=== PATIENT | female | born 1975 | race Caucasian/White ===

== ENCOUNTER 2018-11-26 10:42 | Observation (INO) | payer BC, OTHER ==
[~2018-11-26] VITALS: Ht 157.5 cm; Wt 96.6 kg
[2018-11-26] MEDS ORDERED: BACTRIM (11:12)
[2018-11-26 11:14] LABS: CLARITY,URINE CLEAR; COLOR,URINE AMBER; GLUCOSE, URINE (UA) NEGATIVE (NEGATIVE); KETONES,URINE NEGATIVE (NEGATIVE); LEUKOCYTE ESTERASE ,URINE 3+ (NEGATIVE); NITRITE,URINE NEGATIVE (NEGATIVE); PH,URINE 6 (5-9); PROTEIN,URINE 2+ (NEGATIVE); UROBILINOGEN,URINE 1 MG/DL (NORMAL)
[2018-11-26] MEDS ORDERED: NS IV 1000 ML 1,000 ML IV SCH ×2 (11:15→16:15)
[2018-11-26] MEDS ORDERED: fentaNYL INJECTION 100 MCG/2 ML AMP IVP ONE ×3 (11:15→14:45)
[2018-11-26 11:29] LABS: BACTERIA,URINE MODERATE /HPF; WBC,URINE 50-100 /HPF
[2018-11-26 11:30] LABS: BILIRUBIN,URINE 1+ (NEGATIVE)
[2018-11-26 11:37] LABS: BASOPHILS % (AUTO) 0 % (0-10); EOSINOPHILS # (AUTO) 0.1 10^3/uL (0.0-0.3); EOSINOPHILS % (AUTO) 0 % (0-10); HEMATOCRIT 35 % (35-52); HEMOGLOBIN 11.2 G/DL (11.5-16.0); LYMPHOCYTES # (AUTO) 1.3 X 10^3 (1.0-4.0); LYMPHOCYTES % (AUTO) 8 % (12-44); MEAN CORPUSCULAR HEMOGLOBIN 26 PG (25-34); MEAN CORPUSCULAR HGB CONC 32 G/DL (32-36); MEAN CORPUSCULAR VOLUME 82 FL (80-99); MEAN PLATELET VOLUME 8.1 FL (7.4-10.4); MONOCYTES # (AUTO) 1.2 X 10^3 (0.0-1.0); MONOCYTES % (AUTO) 7 % (0-12); NEUTROPHILS # (AUTO) 13.9 X 10^3 (1.8-7.8); NEUTROPHILS % (AUTO) 84 % (42-75); PLATELET COUNT 410 10^3/uL (130-400); RED CELL DISTRIBUTION WIDTH 14.8 % (10.0-14.5); WHITE BLOOD COUNT 16.5 10^3/uL (4.3-11.0)
--- NOTE | 2018-11-26 11:39 | ED Back Pain ---
General Chief Complaint: Back Problems Stated Complaint: POSS KIDNEY STONE Nursing Triage Note: AMB TO ROOM REPORTS WAS SEEN AT CLINIC ON MONDAY FOR LOW BACK PAIN MORE ON L SIDE. WAS STARTED ON ANTIBIOTIC WAS NOT ANY BETTER WENT TO URGENT CARE AT [place] RECEIVED IM ROCEPPHIN NOT ANY BETTER. WAS TOLD TO COME TO ER FOR POSSIBLE KIDNEY STONE. Nursing Sepsis Screen: No Definite Risk Source of Information: Patient Exam Limitations: No Limitations History of Present Illness Date Seen by Provider: Nov 26, 2018 Time Seen by Provider: 11:05 Initial Comments 43-year-old female who presents to the emergency room with complaints of left- sided flank pain that radiates to her low back for the past 3 days. She reports that she was seen at [facility] urgent care and was placed on anabiotic's and then went to [facility] to see Dr. Howard which she received a shot of Rocephin for a urinary tract infection but reports it is not improving. They recommended her to come to the emergency room to rule out a kidney stone. She reports likely urinary tract infection. Location: Lumbar Spine (left flank) Allergies and Home Medications Allergies Coded Allergies: No Known Drug Allergies (Unverified , 11/26/18) Patient Home Medication List Home Medication List Reviewed: Yes Review of Systems Constitutional: see HPI; No chills, No fever Genitourinary: see HPI, pain (flank pain and left-sided) All Other Systems Reviewed Negative Unless Noted: Yes Past Ddbddke-Jpovwm-Orzzmj Hx Patient Social History Alcohol Use: Occasionally Uses Alcohol Beverage of Choice: Beer Recreational Drug Use: No Smoking Status: Never a Smoker Recent Foreign Travel: No Contact w/Someone Who Travel: No Recent Infectious Disease Expo: No Past Medical History Surgeries: No Respiratory: No Cardiac: No Neurological: No Genitourinary: No Gastrointestinal: No Musculoskeletal: No Endocrine: No Integumentary: No Family Medical History Reviewed Nursing Family Hx Physical Exam Vital Signs Vital Signs - First Documented 11/26/18 10:45 Temp 99.0 Pulse 100 Resp 18 B/P (MAP) 140/90 (107) Pulse Ox 95 Capillary Refill : Less Than 3 Seconds Height, Weight, BMI Height: 5'2.00" Weight: 213lbs. oz. 96.899835fy; BMI Method:Stated General Appearance: No Apparent Distress, WD/WN Cardiovascular: Regular Rate, Rhythm, No Edema, No Gallop, No JVD, No Murmur, Normal Peripheral Pulses Respiratory: Chest Non Tender, Lungs Clear, Normal Breath Sounds, No Accessory Muscle Use, No Respiratory Distress, Accessory Muscle Use Gastrointestinal: Normal Bowel Sounds, No Organomegaly, No Pulsatile Mass, Non Tender, Soft Back: No Vertebral Tenderness Neurologic/Psychiatric: Alert, Oriented x3, Normal Mood/Affect Skin: Normal Color, Warm/Dry Progress/Results/Core Measures Results/Orders Lab Results Laboratory Tests Test 11/26/18 10:51 11/26/18 11:28 Range/Units Urine Color NICOLA H Urine Clarity CLEAR Urine pH 6 5-9 Urine Specific Concrete 1.020 1.016-1.022 Urine Protein 2+ H NEGATIVE Urine Glucose (UA) NEGATIVE NEGATIVE Urine Ketones NEGATIVE NEGATIVE Urine Nitrite NEGATIVE NEGATIVE Urine Bilirubin 1+ H NEGATIVE Urine Urobilinogen 1 NORMAL MG/DL Urine Leukocyte Esterase 3+ H NEGATIVE Urine RBC (Auto) 2+ H NEGATIVE Urine RBC 2-5 H /HPF Urine WBC 50-100 H /HPF Urine Squamous Epithelial Cells 5-10 /HPF Urine Crystals NONE /LPF Urine Bacteria MODERATE H /HPF Urine Casts NONE /LPF Urine Mucus MODERATE H /LPF Urine Culture Indicated YES Urine Test NEGATIVE NEGATIVE White Blood Count 16.5 H 4.3-11.0 10^3/uL Red Blood Count 4.24 L 4.35-5.85 10^6/uL Hemoglobin 11.2 L 11.5-16.0 G/DL Hematocrit 35 35-52 % Mean Corpuscular Volume 82 80-99 FL Mean Corpuscular Hemoglobin 26 25-34 PG Mean Corpuscular Hemoglobin Concent 32 32-36 G/DL Red Cell Distribution Width 14.8 H 10.0-14.5 % Platelet Count 410 H 130-400 10^3/uL Mean Platelet Volume 8.1 7.4-10.4 FL Neutrophils (%) (Auto) 84 H 42-75 % Lymphocytes (%) (Auto) 8 L 12-44 % Monocytes (%) (Auto) 7 0-12 % Eosinophils (%) (Auto) 0 0-10 % Basophils (%) (Auto) 0 0-10 % Neutrophils # (Auto) 13.9 H 1.8-7.8 X 10^3 Lymphocytes # (Auto) 1.3 1.0-4.0 X 10^3 Monocytes # (Auto) 1.2 H 0.0-1.0 X 10^3 Eosinophils # (Auto) 0.1 0.0-0.3 10^3/uL Basophils # (Auto) 0.0 0.0-0.1 10^3/uL Neutrophils % (Manual) 83 % Lymphocytes % (Manual) 8 % Monocytes % (Manual) 4 % Eosinophils % (Manual) 1 % Basophils % (Manual) 1 % Band Neutrophils 3 % Blood Morphology Comment NORMAL Sodium Level 140 135-145 MMOL/L Potassium Level 3.4 L 3.6-5.0 MMOL/L Chloride Level 105 98-107 MMOL/L Carbon Dioxide Level 25 21-32 MMOL/L Anion Gap 10 5-14 MMOL/L Blood Urea Nitrogen 11 7-18 MG/DL Creatinine 0.85 0.60-1.30 MG/DL Estimat Glomerular Filtration Rate > 60 BUN/Creatinine Ratio 13 Glucose Level 99 70-105 MG/DL Calcium Level 9.4 8.5-10.1 MG/DL Corrected Calcium 10.0 8.5-10.1 MG/DL Total Bilirubin 0.3 0.1-1.0 MG/DL Aspartate Amino Transf (AST/SGOT) 14 5-34 U/L Alanine Aminotransferase (ALT/SGPT) 19 0-55 U/L Alkaline Phosphatase 114 40-136 U/L Total Protein 7.7 6.4-8.2 GM/DL Albumin 3.2 3.2-4.5 GM/DL My Orders Orders - JAQUELINE FERREIRA Ct Abd/Pelvis Wo(Kidney Stone) (11/26/18 11:00) Abdomen/Kub 1view (11/26/18 11:00) Fentanyl Injection (Sublimaze Injection (11/26/18 11:15) Ns Iv 1000 Ml (Sodium Chloride 0.9%) (11/26/18 11:15) Hcg,Qualitative Urine (11/26/18 11:30) Fentanyl Injection (Sublimaze Injection (11/26/18 13:15) Us Non Ob Pelvis Comp/Transvag (11/26/18 12:58) Fentanyl Injection (Sublimaze Injection (11/26/18 14:45) Ceftriaxone For Iv Use (Rocephin For I (11/26/18 14:41) Water (Sterile) For Injection (Sterile W (11/26/18 14:41) Medications Given in ED Current Medications Medications Dose Ordered Sig/Tomasz Route Start Time Stop Time Status Last Admin Dose Admin Fentanyl Citrate 25 mcg ONCE ONCE IVP 11/26/18 11:15 11/26/18 11:16 DC 11/26/18 11:25 25 MCG Fentanyl Citrate 50 mcg ONCE ONCE IVP 11/26/18 13:15 11/26/18 13:16 DC 11/26/18 13:13 50 MCG Fentanyl Citrate 50 mcg ONCE ONCE IVP 11/26/18 14:45 11/26/18 14:46 DC 11/26/18 14:54 50 MCG Vital Signs/I&O 11/26/18 10:45 Temp 99.0 Pulse 100 Resp 18 B/P (MAP) 140/90 (107) Pulse Ox 95 Blood Pressure Mean: 107 Departure Communication (Admissions) Time/Spoke to Admitting Phy: 14:[address] Villagomez he recommends admitting the patient as obser vation status. She will receive her antibiotic coverage. The patient agrees with plan of care. Impression Primary Impression: Left Adnexal Abscess Additional Impression: Urinary tract infection Disposition: 01 HOME, SELF-CARE Condition: Stable/Unchanged Admissions Decision to Admit Reason: Admit from ER (General) Decision to Admit/Date: Nov 26, 2018 Time/Decision to Admit Time: 14:47 JAQUELINE FERREIRA Nov 26, 2018 11:39
[2018-11-26 11:59] LABS: BAND NEUTROPHILS 3 %; BASOPHILS % (MANUAL) 1 %; EOSINOPHILS % (MANUAL) 1 %; LYMPHOCYTES % (MANUAL) 8 %; MONOCYTES % (MANUAL) 4 %; NEUTROPHILS % (MANUAL) 83 %; RBC MORPH NORMAL
[2018-11-26 12:03] LABS: ALANINE AMINOTRANSFERASE 19 U/L (0-55); ALBUMIN 3.2 GM/DL (3.2-4.5); ALKALINE PHOSPHATASE 114 U/L (40-136); BILIRUBIN,TOTAL 0.3 MG/DL (0.1-1.0); BUN/CREATININE RATIO 13; CALCIUM 9.4 MG/DL (8.5-10.1); CARBON DIOXIDE 25 MMOL/L (21-32); CHLORIDE 105 MMOL/L (98-107); CREATININE SERUM 0.85 MG/DL (0.60-1.30); GFR ESTIMATED > 60; GLUCOSE 99 MG/DL (70-105); POTASSIUM 3.4 MMOL/L (3.6-5.0); SODIUM 140 MMOL/L (135-145); TOTAL PROTEIN 7.7 GM/DL (6.4-8.2)
--- NOTE | 2018-11-26 12:54 | Diagnostic Imaging Report ---
PROCEDURE: CT urinary tract, rule out kidney stone. TECHNIQUE: Multiple contiguous axial images were obtained through the abdomen and pelvis without the use of intravenous contrast. Auto Exposure Controls were utilized during the CT exam to meet ALARA standards for radiation dose reduction. INDICATION: Abdominal pain. No prior studies are available for comparison. The lung bases are clear apart from minimal linear scarring or atelectasis in the lingula. The liver and gallbladder are unremarkable. No biliary duct dilatation is seen. Pancreas and spleen are unremarkable. No adrenal mass is detected. There is a soft tissue mass in the left pelvis which may represent an enlarged left ovary. This measures approximately 6.6 x 4.7 cm. Inferior posterior to this a more elongated area of low density measuring 6.2 x 2.4 cm. Posterior to the uterus anterior to the rectum is third masslike region of low density in the midline pelvis measuring 6.1 x 5.1 cm. The uterus contains an IUD. The bladder is unremarkable. No free fluid is identified. There are moderate inflammatory changes in the fat in the left pelvis. Urinary tract is somewhat prominent which could be owing to some mild hydronephrosis due to the left pelvic process. No definite calculi are detected. Right kidney is unremarkable. Bowel loops appear to be nondilated. The appendix is unremarkable. IMPRESSION: Inflammatory process in the left pelvis, as described. Ovary appears enlarged and there appear to be tubular low-density collection as well as a rounded low-density collection. Findings could be owing to tubo-ovarian abscess with hydrosalpinx. Further evaluation with pelvic ultrasound is recommended. No other significant abnormality is seen. Dictated by: Dictated on workstation # [id number]
--- OUTSIDE RECORDS SUMMARY | 2018-11-26 13:11 | XMS REPORT | Continuity of Care Document ---
Author Organization Unknown Address Unknown Phone Unavailable Allergies There is no data. Medications There is no data. Problems Date Dx Coded Attending Type Code Diagnosis Diagnosed By 05/27/2010 PRIYA DECKER APRN 278.00 OBESITY UNSPECIFIED 05/27/2010 PRIYA DECKER APRN 311 DEPRESSIVE DISORDER NOT ELSEWHERE CLASSIFIED 12/08/2010 PRIYA DECKER APRN 780.8 GENERALIZED HYPERHIDROSIS 02/01/2012 PRIYA DECKER APRN V06.1 TDAP DX 02/05/2014 PRIYA DECKER APRN V04.81 FLU SHOT Procedures There is no data. Results There is no data. Encounters ACCT No. Visit Date/Time Discharge Status Pt. Type Provider Facility Loc./Unit Complaint [id number] 02/05/2014 13:13:00 02/05/2014 23:59:59 CLS Outpatient PRIYA DECKER APRN
--- OUTSIDE RECORDS SUMMARY | 2018-11-26 13:11 | XMS REPORT ---
Author Author EMMANUEL MADDOX [facility] Address [address] [place] [address] Care Team Providers Care Materials Handling Equipment Operator Name Role Phone EMMANUEL MADDOX Unavailable PROBLEMS Type Condition ICD9-CM Code [id number] Code Onset Dates Condition Status SNOMED Code Problem Need for prophylactic vaccination and inoculation, Influenza V04.81 Active 704209066 Problem DTAP TEST V06.1 Active ALLERGIES No Information ENCOUNTERS Encounter Location Date Diagnosis [facility] [id number] [place] [phone] Jan, Encounter for immunization Z23 [facility] [id number] [place] [phone] Jul, [facility] [id number] [place] [phone] Jul, [facility] [id number] [place] [phone] Jan, [facility] [id number] [place] [phone] Jan, [facility] [id number] [place] [phone] Oct, [facility] [id number] [place] [phone] Jan, [facility] [id number] [place] [phone] Jan, [facility] [id number] [place] [phone] August, [facility] [id number] [place] [phone] August, [facility] [address] [facility] [place] [id number] [address] Jul, [facility] [address] [facility] [id number] [address] May, IMMUNIZATIONS Vaccine Route Administration Date Status FLULAVAL QUAD 0.5ML (6 MO & UP) 2018 IM Intramuscular Feb 06, 2018 Administered SOCIAL HISTORY Never Assessed REASON FOR VISIT Flu shot PLAN OF CARE VITAL SIGNS MEDICATIONS Unknown Medications RESULTS No Results PROCEDURES Procedure Date Ordered Result Body Site FLULAVAL QUAD 0.5ML (6 MO AND UP) 2018 Feb 06, 2018 SINGLE IMMUNIZATION ADMIN Feb 06, 2018 INSTRUCTIONS MEDICATIONS ADMINISTERED No Known Medications
--- OUTSIDE RECORDS SUMMARY | 2018-11-26 13:11 | XMS REPORT ---
Author Author Migration, Doctor Organization [facility] Address Unknown Phone Unavailable Care Team Providers Care Pastry Cook Apprentice Name Role Phone Migration, Doctor Unavailable Unavailable PROBLEMS Type Condition ICD9-CM Code VVP73-UZ Code Onset Dates Condition Status SNOMED Code Problem DTAP TEST V06.1 Active Problem Need for prophylactic vaccination and inoculation, Influenza V04.81 Active [id number] ALLERGIES No Information ENCOUNTERS Encounter Location Date Diagnosis [facility] [id number] [place] [phone] Jan, Encounter for immunization Z23 [facility] [id number] [place] [phone] Jul, [facility] [id number] [place] [phone] Jul, [facility] [id number] [place] [phone] Jan, [facility] [id number] [place] [phone] Jan, [facility] [id number] [address] Oct, [facility] [id number] [place] [phone] Jan, [facility] [id number] [address] Jan, [facility] [id number] [place] [phone] August, [facility] [id number] [address] August, [facility] [id number] [place] [phone] Jul, [facility] [address] [facility] [place] [facility] [id number] [place] [address] May, IMMUNIZATIONS No Known Immunizations SOCIAL HISTORY Never Assessed REASON FOR VISIT EMR-[facility] PLAN OF CARE VITAL SIGNS MEDICATIONS Medication Instructions Dosage Frequency Start Date End Date Duration Status Celexa 10 mg take 1 tablet (10 mg) by oral route once daily Oct, Active RESULTS No Results PROCEDURES No Known procedures INSTRUCTIONS MEDICATIONS ADMINISTERED No Known Medications
--- NOTE | 2018-11-26 13:27 | Diagnostic Imaging Report ---
INDICATION: Left-sided pain. TIME OF EXAMINATION: 1:02 PM. FINDINGS: Two views of the abdomen demonstrate the bowel gas pattern to be nonobstructed. No pathologic calcifications are seen. An IUD is located in the pelvis. There is no free air. IMPRESSION: No acute feature is detected. Dictated by: Dictated on workstation # [id number]
--- NOTE | 2018-11-26 14:33 | Diagnostic Imaging Report ---
PROCEDURE: US Non-ob pelvis comp/trans. TECHNIQUE: Multiple realtime grayscale images were obtained of the pelvis in various projections endovaginally. Transabdominal imaging was also performed. INDICATION: Abnormal CT. FINDINGS: Uterus measures 6.7 x 2.4 cm. Endometrium is 4 mm in thickness. There appears to be an IUD in the endometrial canal. No myometrial mass is detected. Right ovary was not visualized. There is complex-appearing fluid collection posterior to the uterus measuring 6.6 x 6.4 x 5.1 cm. No internal vascularity is seen. No normal-appearing left ovary is identified. Left adnexa is very poorly visualized. Patient could not tolerate transvaginal scanning. No free fluid is seen. IMPRESSION: Poor quality study due to inability to obtain transvaginal scan. There appears to be a complex fluid collection posterior to the uterus corresponding with the CT. The abnormal left adnexal structures noted on CT were not visualized on this study due to a poor acoustic window. Consideration could be given to performance of a post IV and oral contrast CT for better evaluation. Features remain highly suspicious for an infectious process in the pelvis such as tubo-ovarian abscess and perhaps hydrosalpinx. Dictated by: Dictated on workstation # [id number]
[2018-11-26] MEDS ORDERED: cefTRIAXone 1,000 MG IV (ROCEPHIN) VIAL ONE (14:41)
[2018-11-26] MEDS ORDERED: WATER (STERILE) FOR INJECTION 10 ML ONE (14:41)
[2018-11-26] MEDS ORDERED: cefTRIAXone FOR IV USE 1,000 MG in WATER (STERILE) FOR INJECTION 10 ML IV ONE (15:45)
--- NOTE | 2018-11-26 15:45 | NUR ---
JESSICA GORMAN presented to unit via WC from ED, alone, with c/o L ADNEXAL ABSCESS,UTI. JESSICA GORMAN weighed, gowned, to bed. VS taken. JESSICA GORMAN oriented to bed controls, call light, TV, heat, and A/C controls. Patient requesting pain meds when available. IV fluids started per order, NS at 75cc/hr to site in LAC. Infusion pump utilized. Awaiting Flagyl from Pharmacy to continue. Patient states wants to sleep.
[2018-11-26 16:00] VITALS: BP 139/75
[2018-11-26] MEDS ORDERED: ONDANSETRON 4 MG/2 ML (SDV) Z0FRAN IV PRN (16:15)
[2018-11-26] MEDS ORDERED: fentaNYL INJECTION 100 MCG/2 ML AMP IV PRN (16:15)
[2018-11-26] MEDS ORDERED: CATHETER FLUSH 10 ML SYR IV PRN (16:15)
[2018-11-26 16:19] VITALS: BP 118/70
[2018-11-26] MEDS: metroNIDAZOLE 500 MG/100 ML IVPB (PRE-MIX) IV SCH (16:26)
--- NOTE | 2018-11-26 16:30 | NUR ---
Dr. Hitchcock here. Exam done in patients room.
--- NOTE | 2018-11-26 16:39 | History & Physical-OB/GYN ---
History of Present Illness History of Present Illness Reason for visit/HPI Ms. Neves was seen in the Emergency Department for left lower quadrant pain. A Pelvic Ultrasound was performed which demonstrated a possible abscess. Date of Admission Nov 26, 2018 at 14:50 Date Seen by a Provider: Nov 26, 2018 Time Seen by a Provider: 16:30 I consulted on this patient on 11/26/18 16:33 Attending Physician Marcell Hitchcock DO Admitting Physician Marcell Hitchcock DO Consult Allergies and Home Medications Allergies Coded Allergies: No Known Drug Allergies (Unverified , 11/26/18) Patient Home Medication List Home Medication List Reviewed: Yes Past Tgzlauo-Yqbfkt-Fbmvle Hx Patient Social History Marrital Status: single Number of Children: 1 Number of living children: 1 Employed/Student: employed Alcohol Use: Occasionally Uses Alcohol Beverage of Choice: Beer Recreational Drug Use: No Smoking Status: Never a Smoker Recent Foreign Travel: No Contact w/other who traveled: No Recent Infectious Disease Expo: No Surgeries Yes Section Respiratory No Cardiovascular No Neurological No Genitourinary No Gastrointestinal No Musculoskeletal No Endocrine History of Endocrine Disorders: No HEENT History of HEENT Disorders: No Cancer No Psychosocial History of Psychiatric Problem: No Integumentary History of Skin or Integumenta: No Review of Systems Constitutional: see HPI : No Physical Exam Physical Exam Vital Signs Vital Signs Date Time Temp Pulse Resp B/P (MAP) Pulse Ox O2 Delivery O2 Flow Rate FiO2 11/26/18 15:42 100 18 118/70 (86) 93 Room Air 11/26/18 10:45 99.0 100 18 140/90 (107) 95 Capillary Refill : Less Than 3 Seconds Labs Laboratory Tests 11/26/18 10:51: Urine Color AMBERH, Urine Clarity CLEAR, Urine pH 6, Urine Specific Oden 1.020, Urine Protein 2+H, Urine Glucose (UA) NEGATIVE, Urine Ketones NEGATIVE, Urine Nitrite NEGATIVE, Urine Bilirubin 1+H, Urine Urobilinogen 1, Urine Leukocyte Esterase 3+H, Urine RBC (Auto) 2+H, Urine RBC 2-5H, Urine WBC 50-100H, Urine Squamous Epithelial Cells 5-10, Urine Crystals NONE, Urine Bacteria MODERATEH, Urine Casts NONE, Urine Mucus MODERATEH, Urine Culture Indicated YES, Urine Test NEGATIVE 11/26/18 11:28: White Blood Count 16.5H, Red Blood Count 4.24L, Hemoglobin 11.2L, Hematocrit 35, Mean Corpuscular Volume 82, Mean Corpuscular Hemoglobin 26, Mean Corpuscular Hemoglobin Concent 32, Red Cell Distribution Width 14.8H, Platelet Count 410H, Mean Platelet Volume 8.1, Neutrophils (%) (Auto) 84H, Lymphocytes (%) (Auto) 8L, Monocytes (%) (Auto) 7, Eosinophils (%) (Auto) 0, Basophils (%) (Auto) 0, Neutrophils # (Auto) 13.9H, Lymphocytes # (Auto) 1.3, Monocytes # (Auto) 1.2H, Eosinophils # (Auto) 0.1, Basophils # (Auto) 0.0, Neutrophils % (Manual) 83, Lymphocytes % (Manual) 8, Monocytes % (Manual) 4, Eosinophils % (Manual) 1, Basophils % (Manual) 1, Band Neutrophils 3, Blood Morphology Comment NORMAL, Sodium Level 140, Potassium Level 3.4L, Chloride Level 105, Carbon Dioxide Level 25, Anion Gap 10, Blood Urea Nitrogen 11, Creatinine 0.85, Estimat Glomerular Filtration Rate > 60, BUN/Creatinine Ratio 13, Glucose Level 99, Calcium Level 9.4, Corrected Calcium 10.0, Total Bilirubin 0.3, Aspartate Amino Transf (AST /SGOT) 14, Alanine Aminotransferase (ALT/SGPT) 19, Alkaline Phosphatase 114, Total Protein 7.7, Albumin 3.2 General Appearance: No Apparent Distress, WD/WN Respiratory: Lungs Clear, Normal Breath Sounds Cardiovascular: Regular Rate, Rhythm, No Gallop Abdominal: normal bowel sounds, LLQ (Tenderness in left lower quadrant--no rebound, no guarding) Assessment/Plan Assessment and Plan Assessment: Left Lower Quadrant Pelvic Pain 2. Tubo-ovarian Abscess Plan: IV antibiotics (Rocephin and Flagyl). Oral pain medications with IV for breakthrough pain. Vital per protocol. Admission Diagnosis Admission Status: Observation Reason for Inpatient Admission: Pelvic pain with possible Tubo-ovarian Abscess MARCELL HITCHCOCK DO Nov 26, 2018 16:39
[2018-11-26] MEDS ORDERED: ZOLPIDEM 5 MG (AMBIEN) TAB PO PRN (16:45)
[2018-11-26] MEDS: IBUPROFEN 800 MG (MOTRIN) TAB PO PRN (16:53)
[2018-11-26] MEDS: oxyCODONE/APAP 5/325MG (PERCOCET 5) TABLET PO PRN ×2 (16:53→23:24)
--- NOTE | 2018-11-26 17:20 | NUR ---
Dr. Hitchcock notified of patient DVT risk. To wear SCD's, no medication needed.
--- NOTE | 2018-11-26 18:20 | NUR ---
Patient states pain better since oral meds. From 7 to 5 on pain scale. SCD's in place. Patient has voided.
[2018-11-26 20:10] VITALS: BP 108/67
[2018-11-26 23:22] VITALS: BP 114/70
[2018-11-27] MEDS: IBUPROFEN 800 MG (MOTRIN) TAB PO PRN (03:06)
[2018-11-27] MEDS: metroNIDAZOLE 500 MG/100 ML IVPB (PRE-MIX) IV SCH (04:21)
[2018-11-27 04:31] VITALS: BP 126/81
[2018-11-27] MEDS ORDERED: cefTRIAXone 1,000 MG IV (ROCEPHIN) VIAL ONE (06:46)
[2018-11-27] MEDS ORDERED: WATER (STERILE) FOR INJECTION 10 ML ONE (06:47)
--- NOTE | 2018-11-27 06:50 | NUR ---
on unit, orders given to adiminister 1GM rocephin early so pt may be discharged. see emar.
--- NOTE | 2018-11-27 06:56 | Discharge Summary ---
Diagnosis/Chief Complaint Date of Admission Nov 26, 2018 at 14:50 Date of Discharge November 27, 2018 Discharge Date: Nov 27, 2018 Discharge Time: 08:00 Admission Diagnosis Admission Diagnosis Pelvic Pain Discharge Diagnosis Pelvic Pain 2. Tubo-ovarian Abscess Reason Hospital Visit Ms. Neves was seen in the Emergency Department for left lower quadrant pain. A Pelvic Ultrasound was performed which demonstrated a possible abscess. Discharge Summary Discharge Physical Examination Allergies: Coded Allergies: No Known Drug Allergies (Unverified , 11/26/18) Vitals & I&Os Vital Signs Date Time Temp Pulse Resp B/P (MAP) Pulse Ox O2 Delivery O2 Flow Rate FiO2 11/27/18 04:31 99.6 92 18 126/81 (96) 93 Room Air General Appearance: Alert, Oriented X3, Cooperative HEENT: Atraumatic Respiratory: Clear to Auscultation, Normal Air Movement Cardiovascular: Regular Rate, No Murmurs Abdominal: Normal Bowel Sounds, Soft, No Tenderness Extremities: No Clubbing, No Cyanosis, No Edema Skin: No Rashes Neuro: Normal Gait, Normal Speech Psych/Mental Status: Mental Status NL Hospital Course Was the Problem List Reviewed?: Yes Ms. Neves was seen in the Emergency Department for left lower quadrant pelvic pain. A CT of the pelvis and a Pelvic Ultrasound was performed, both suggested a tubo-ovarian abscess. She was admitted for pain control and IV antibiotics. Over the course of the night, Ms. Neves improved signficantly. Today, she states that she is ready to go home and her pain is all but gone. Her vital signs remained stable. I will discharge her to home with instructions, prescriptions and a follow up appointment. Discharge Instructions to patient/family Please see electronic discharge instructions given to patient. Discharge Medications Reviewed and agree with Discharge Medication list on patient's Discharge Instruction sheet Clinical Quality Measures DVT/VTE Risk/Contraindication: Risk Factor Score Per Nursin RFS Level Per Nursing on Admit: 2=Moderate CAMILLE THAKKAR DO Nov 27, 2018 06:56
[2018-11-27] MEDS ORDERED: OXYC1TAB87 PO (06:59)
[2018-11-27] MEDS ORDERED: IBUP-1780 PO (06:59)
[2018-11-27] MEDS ORDERED: METR-145 PO (06:59)
[2018-11-27] MEDS ORDERED: CEPH-507 PO (07:00)
[2018-11-27 07:13] LABS: BASOPHILS % (AUTO) 0 % (0-10); EOSINOPHILS # (AUTO) 0.1 10^3/uL (0.0-0.3); EOSINOPHILS % (AUTO) 1 % (0-10); HEMATOCRIT 33 % (35-52); HEMOGLOBIN 10.3 G/DL (11.5-16.0); LYMPHOCYTES # (AUTO) 1.4 X 10^3 (1.0-4.0); LYMPHOCYTES % (AUTO) 8 % (12-44); MEAN CORPUSCULAR HEMOGLOBIN 26 PG (25-34); MEAN CORPUSCULAR HGB CONC 31 G/DL (32-36); MEAN CORPUSCULAR VOLUME 83 FL (80-99); MEAN PLATELET VOLUME 8.3 FL (7.4-10.4); MONOCYTES # (AUTO) 1.4 X 10^3 (0.0-1.0); MONOCYTES % (AUTO) 9 % (0-12); NEUTROPHILS # (AUTO) 13.4 X 10^3 (1.8-7.8); NEUTROPHILS % (AUTO) 82 % (42-75); PLATELET COUNT 435 10^3/uL (130-400); WHITE BLOOD COUNT 16.3 10^3/uL (4.3-11.0)
[2018-11-27 07:36] LABS: ALANINE AMINOTRANSFERASE 20 U/L (0-55); ALBUMIN 2.8 GM/DL (3.2-4.5); ALKALINE PHOSPHATASE 127 U/L (40-136); BILIRUBIN,TOTAL 0.3 MG/DL (0.1-1.0); BUN/CREATININE RATIO 14; CALCIUM 8.9 MG/DL (8.5-10.1); CARBON DIOXIDE 22 MMOL/L (21-32); CHLORIDE 108 MMOL/L (98-107); GFR ESTIMATED > 60; GLUCOSE 105 MG/DL (70-105); POTASSIUM 3.3 MMOL/L (3.6-5.0); SODIUM 142 MMOL/L (135-145)
--- NOTE | 2018-11-27 08:15 | NUR ---
FOLLOW UP APPT MADE FOR PT WITH DR. THAKKAR AT [facility]
[2018-11-27 08:45] VITALS: BP 131/71
--- NOTE | 2018-11-27 08:47 | NUR ---
DISCHARGE INSTRUCTIONS EXPLAINED TO PT WITH COPY PROVIDED TO PT ALONG WITH PRESCRIPTIONS. PT VERBALIZES UNDERSTANDING OF INSTRUCTIONS, AND SIGNS TO VERIFY. DENIES QUESTIONS OR CONCERNS. PT AMBULATES OFF UNIT TO PRIVATE VEHICLE WITH ALL PERSONAL BELONGINGS. NO S/S OF DISTRESS NOTED.
[2018-11-27] MEDS ORDERED: cefTRIAXone 1,000 MG/SWFI 10 ML IV PUSH IV SCH ×2 (15:00)
== END 2018-11-27 08:47 | disposition home or self-care (01) ==
LOC: EDUNIT# 10:42 → ER 10:43 → WS 14:50 → UNDOADMOB 14:50 → WS 15:45 → UNDODISOB 11-27 08:50
PROVIDERS: ADMIT Obstetrics & Gynecology; ATTEND Obstetrics & Gynecology
DX: R10.32 Left lower quadrant pain (principal); N70.93 Salpingitis and oophoritis, unspecified; N93.0 Postcoital and contact bleeding; Z79.891 Long term (current) use of opiate analgesic; Z79.899 Other long term (current) drug therapy
CPT/HCPCS: 36415; 74018; 74176; 76830; 76856; 80053; 81000; 84703; 85007; 85025; 85027; 87088; 96361; 96374; 96375; 96376; G0378

== ENCOUNTER → 2019-01-21 | Outpatient (CLI) | payer BC ==
[~2019-01-21] MED LIST: BACTRIM; CEPH-507 PO; IBUP-1780 PO; METR-145 PO; OXYC1TAB87 PO
--- NOTE | 2019-01-21 16:55 | Diagnostic Imaging Report ---
PROCEDURE: US Non-ob pelvis comp/trans. TECHNIQUE: Multiple realtime grayscale images were obtained of the pelvis in various projections endovaginally. Transabdominal imaging was also performed. INDICATION: Ovarian abscess. COMPARISON: 11/26/2018 FINDINGS: Transabdominal: The uterus and adnexa have a unremarkable transabdominal appearance. Transvaginal images were obtained for additional characterization. Transvaginal: The uterus is retroverted and measures 8.4 x 6.3 x 4.2 cm. The endometrial stripe measures 0.9 cm and has a normal appearance. An IUD is in place within the lower uterine segment. The right ovary again is not visualized due to overlying bowel gas and poor sonographic window. The left ovary is well-visualized measuring 2.1 x 2.3 x 1.2 cm cm with normal color Doppler flow. The previously visualized complex fluid collection posterior to the uterus and within the left adnexa has resolved. No adnexal masses. No free fluid is seen in the pelvis. IMPRESSION: 1. Interval resolution of the previously noted complex fluid collection in the left adnexa and posterior to the uterus, likely representing resolved tubo-ovarian abscess and pyosalpinx. The left ovary has an unremarkable appearance on today's exam. 2. Nonvisualization of the right ovary due to overlying bowel gas and poor sonographic window. Dictated by: Dictated on workstation # [id number]
== END ==
LOC: RAD 14:54
PROVIDERS: ATTEND Obstetrics & Gynecology
DX: N70.92 Oophoritis, unspecified (principal)
CPT/HCPCS: 76830; 76856